=== PATIENT | male | born 1960 | race Hispanic/Latino ===

== ENCOUNTER 2017-11-25 03:58 | Inpatient (IN) | payer MEDICARE, OTHER ==
[2017-11-25 04:11] VITALS: BMI 24.3
[2017-11-25] MEDS ORDERED: Sodium Chloride 0.9% 1,000 ML IV STA (04:21)
[2017-11-25] MEDS ORDERED: Morphine 4 mg/ml ISec IVP STA (04:21)
--- NOTE | 2017-11-25 04:26 | ED PDOC ---
Arrival/HPI - General Chief Complaint: Abdominal Pain Time Seen by Provider: 11/25/17 04:10 Historian: Patient - History of Present Illness Narrative History of Present Illness (Text): 11/25/17 04:22 57 year old male, whose past medical history includes ulcerations in the stomach , multiple abdominal surgeries, and 3 blood clots in the legs, who presents to the emergency department complaining of abdominal pain since midnight. Patient notes associated nausea. Patient notes a couple months ago he was hospitalized to the ICU for internal bleeding due to stomach ulcerations. Patient denies any fever, chills, chest pain, shortness of breath, vomiting, diarrhea, back pain, neck pain, headache, dizziness, or any other complaints. 11/25/17 04:33 Time/Duration: 4-6 hours Symptom Onset: Sudden Symptom Course: Unchanged Activities at Onset: Light Context: Home Past Medical History - Provider Review Nursing Documentation Reviewed: Yes - Cardiac Hx Cardiac Disorders: No - Pulmonary Hx Respiratory Disorders: No - Neurological Hx Neurological Disorder: No - HEENT Hx HEENT Disorder: No - Renal Hx Renal Disorder: No - Endocrine/Metabolic Hx Endocrine Disorders: No - Hematological/Oncological Hx Blood Transfusions: Yes (2018) - Integumentary Hx Dermatological Disorder: No - Musculoskeletal/Rheumatological Hx Musculoskeletal Disorders: Yes - Gastrointestinal Hx Bowel Surgery: Yes (multiple surgeries) Other/Comment: 2000 traumatic impalement - Genitourinary/Gynecological Hx Genitourinary Disorders: No - Psychiatric Hx Psychophysiologic Disorder: No Hx Substance Use: No - Surgical History Hx Amputation: Yes (left big toe) Hx Musculoskeletal Surgery: Yes (left wrist/left leg) Other/Comment: 2000 traumatic impalement - Anesthesia Hx Anesthesia: Yes Hx Anesthesia Reactions: No Hx Malignant Hyperthermia: No Family/Social History - Physician Review Nursing Documentation Reviewed: Yes Family/Social History: Unknown Family HX Smoking Status: Never Smoked Hx Alcohol Use: No Hx Substance Use: No Allergies/Home Meds Allergies/Adverse Reactions: Allergies ciprofloxacin [From Cipro] Allergy (Verified 11/25/17 04:11) RASH hydralazine Allergy (Verified 11/25/17 04:13) RASH lisinopril Allergy (Verified 11/25/17 04:11) RASH Home Medications: Home Meds Medication Instructions Recorded Confirmed No Known Home Med 11/25/17 11/25/17 Review of Systems - Physician Review All systems were reviewed & negative as marked: Yes - Review of Systems Constitutional: Normal Eyes: Normal ENT: Normal Respiratory: Normal. absent: SOB, Cough Cardiovascular: Normal. absent: Chest Pain Gastrointestinal: Abdominal Pain, Nausea. absent: Diarrhea, Vomiting Genitourinary Male: Normal. absent: Dysuria, Frequency, Hematuria, Urinary Output Changes Musculoskeletal: Normal. absent: Back Pain, Neck Pain Skin: Normal. absent: Rash Neurological: Normal. absent: Headache, Dizziness Endocrine: Normal Hemo/Lymphatic: Normal Psychiatric: Normal Physical Exam Vital Signs Reviewed: Yes Vital Signs Temp Pulse Resp BP Pulse Ox 11/25/17 05:58 62 18 116/80 96 11/25/17 04:21 98.2 F 65 16 144/75 97 Temperature: Afebrile Blood Pressure: Normal Pulse: Regular Respiratory Rate: Normal Appearance: Positive for: Well-Appearing, Non-Toxic, Comfortable Pain Distress: None Mental Status: Positive for: Alert and Oriented X 3 - Systems Exam Head: Present: Atraumatic, Normocephalic Pupils: Present: PERRL Extroacular Muscles: Present: EOMI Conjunctiva: Present: Other (pink) Mouth: Present: Moist Mucous Membranes Neck: Present: Normal Range of Motion Respiratory/Chest: Present: Clear to Auscultation, Good Air Exchange. No: Respiratory Distress, Accessory Muscle Use Cardiovascular: Present: Regular Rate and Rhythm, Normal S1, S2. No: Murmurs Abdomen: Present: Tenderness (epigastric tenderness), Guarding, Scars (surgical scars). 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 No: Occult Blood, Rectal Tenderness , Gross Blood, Melena Back: Present: Normal Inspection. No: CVA Tenderness, Midline Tenderness, Paraspinal Tenderness Upper Extremity: Present: Normal Inspection. No: Cyanosis, Edema Lower Extremity: Present: Normal Inspection. No: Edema Neurological: Present: GCS=15, CN II-XII Intact, Speech Normal Skin: Present: Warm, Dry, Normal Color. No: Rashes Psychiatric: Present: Alert, Oriented x 3, Normal Insight, Normal Concentration Medical Decision Making ED Course and Treatment: 11/25/17 04:29 Impression: 57 year old male presents to the emergency department with abdominal pain since midnight. Differential Diagnosis included but are not limited to: Abdominal Pain vs. Rule out obstruction Plan: -- VBG -- Labs -- Lipase -- Magnesium -- Morphine -- Zofran -- Protonix -- Sodium Chloride -- Urinalysis -- Reassess and disposition Progress Notes: 11/25/17 04:32 EKG reviewed, shows NSR at 71 bpm. LAFB 11/25/17 05:46 Upon reevaluation, patient not feeling well. Actively nauseas, with increasing abdominal pain. Abdomen more distended, tenderness, guarding, no rebound. Patient non-tolerable to PO contrast, CT cancelled and CT w/o PO contrast ordered. 11/25/17 06:58 Accession No. : [id number] CT Abdomen and Pelvis With Intravenous Contrast IMPRESSION: 1.There are nonspecific fluid filled small bowel loops with bowel wall thickening. These findings can represent ileus versus enteritis versus slow transit versus peristalsis. The bowel is adherent to the anterior abdominal wall in the left hemiabdomen seen on image 76 series 3 likely due to adhesions. Close clinical surveillance is recommended if patient demonstrate acute obstructive bowel obstruction symptoms to monitor for partial versus early small bowel obstruction. At this time no definite transition is identified. Case discussed with financial institution vice president, Dr. Stovall. Paged Dr. Guevara. Case signed out to Dr. Calderón to f/u Surgery, reevaluate and disposition. - Lab Interpretations Lab Results: 11/25/17 04:37 11/25/17 04:37 Lab Results 11/25/17 04:37: Sodium 145, Chloride 111 H, Potassium 4.0, Carbon Dioxide 22, Anion Gap 17, BUN 23 H, Creatinine 1.0, Est GFR ( Amer) > 60, Est GFR ( Non-Af Amer) > 60, Random Glucose 82, Calcium 8.6, Magnesium 1.5 L, Total Bilirubin 0.3, AST 32, ALT 29, Alkaline Phosphatase 78, Total Protein 7.0, Albumin 4.0, Globulin 3.0, Albumin/Globulin Ratio 1.3, Lipase 202 11/25/17 04:37: pO2 66 H, VBG pH 7.33, VBG pCO2 42.0, VBG HCO3 22.1, VBG Total CO2 23.4, VBG O2 Sat (Calc) 91.0 H, VBG Base Excess -3.7 L, VBG Potassium 3.7, Sodium 139.0, Chloride 111.0 H, Glucose 89, Lactate 1.2, FiO2 21.0, Venous Blood Potassium 3.7 11/25/17 04:37: PT 10.4, INR 0.91 L, APTT 28.9 11/25/17 04:37: WBC 7.4, RBC 4.91, Hgb 12.4 L, Hct 38.2 L, MCV 77.8 L, MCH 25.3 , MCHC 32.5, RDW 18.1 H, Plt Count 149, MPV 11.3 H, Gran % 46.8 L, Lymph % (Auto ) 46.1 H, [place] % (Auto) 5.7, Eos % (Auto) 1.1 L, Baso % (Auto) 0.3, Gran # 3.48 , Lymph # (Auto) 3.4, [place] # (Auto) 0.4, Eos # (Auto) 0.1, Baso # (Auto) 0.02 - RAD Interpretation Radiology Orders: 11/25/17 05:46 ABD & PELVIS IV CONTRAST ONLY [CT] Stat - Medication Orders Current Medication Orders: Discontinued Medications Sodium Chloride (Sodium Chloride 0.9%) 1,000 mls @ 1,000 mls/hr IV .Q1H STA Stop: 11/25/17 05:20 Last Admin: 11/25/17 04:51 Dose: 1,000 mls/hr eMAR Start Stop Document 11/25/17 04:51 IT (Rec: 11/25/17 04:51 IT [id number]) Intravenous Solution Start Date 11/25/17 Start Time 04:51 End Date 11/25/17 End time 05:51 Total Infusion Time 60 Magnesium Oxide (Mag-Ox) 400 mg PO STAT STA Stop: 11/25/17 05:14 Last Admin: 11/25/17 05:42 Dose: 400 mg Morphine Sulfate (Morphine) 4 mg IVP STAT STA Stop: 11/25/17 04:22 Last Admin: 11/25/17 04:51 Dose: 4 mg MAR Pain Assessment Document 11/25/17 04:51 IT (Rec: 11/25/17 04:51 IT [id number]) Pain Reassessment Is this a pain reassessment? No Sleep Is patient sleeping during reassessment? No Presence of Pain Presence of Pain Yes Pain Scale Used Pain Scale Used Numeric Location Left, Right or Bilateral Right Pain Location Body Site Abdomen Description Description Constant IVP Administration Document 11/25/17 04:51 IT (Rec: 11/25/17 04:51 IT [id number]) Charges for Administration # of IVP Administrations 1 Morphine Sulfate (Morphine) 6 mg IVP STAT STA Stop: 11/25/17 05:46 Last Admin: 11/25/17 05:56 Dose: 6 mg MAR Pain Assessment Document 11/25/17 05:56 IT (Rec: 11/25/17 05:57 IT [id number]) Pain Reassessment Is this a pain reassessment? No Sleep Is patient sleeping during reassessment? No Presence of Pain Presence of Pain Yes Pain Scale Used Pain Scale Used Numeric Location Left, Right or Bilateral Bilateral Pain Location Body Site Abdomen IVP Administration Document 11/25/17 05:56 IT (Rec: 11/25/17 05:57 IT [id number]) Charges for Administration # of IVP Administrations 1 Ondansetron HCl (Zofran Inj) 4 mg IVP STAT STA Stop: 11/25/17 04:22 Last Admin: 11/25/17 04:51 Dose: 4 mg IVP Administration Document 11/25/17 04:51 IT (Rec: 11/25/17 04:51 IT [id number]) Charges for Administration # of IVP Administrations 1 Pantoprazole Sodium (Protonix Inj) 40 mg IVP STAT STA Stop: 11/25/17 04:22 Last Admin: 11/25/17 04:51 Dose: 40 mg IVP Administration Document 11/25/17 04:51 IT (Rec: 11/25/17 04:51 IT [id number]) Charges for Administration # of IVP Administrations 1 - Scribe Statement The provider has reviewed the documentation as recorded by the Scribe Tamar Ramon All medical record entries made by the Scribe were at my direction and personally dictated by me. I have reviewed the chart and agree that the record accurately reflects my personal performance of the history, physical exam, medical decision making, and the department course for this patient. I have also personally directed, reviewed, and agree with the discharge instructions and disposition. Disposition/Present on Arrival - Present on Arrival Any Indicators Present on Arrival: No History of DVT/PE: No History of Uncontrolled Diabetes: No Urinary Catheter: No History of Decub. Ulcer: No History Surgical Site Infection Following: None - Disposition Have Diagnosis and Disposition been Completed?: Yes Diagnosis: Abdominal pain Disposition Time: 07:00 Condition: GUARDED Referrals: PCP,NO [Primary Care Provider] - Follow up with primary Forms: Sandag (Romanian)
[2017-11-25 05:00] LABS: VENOUS BLOOD GAS BASE EXCESS -3.7 mmol/L (0.0-2.0); VENOUS BLOOD GAS PO2 66 mm/Hg (30-55); VENOUS BLOOD PH 7.33 (7.32-7.43)
[2017-11-25 05:10] LABS: ALB/GLOB RATIO 1.3 (1.1-1.8); ALT/SGPT 29 U/L (7-56); AST/SGOT 32 U/L (17-59); BLOOD UREA NITROGEN 23 mg/dL (7-21); CALCIUM 8.6 mg/dL (8.4-10.5); GFR NON-AFRICAN AMERICAN > 60; LIPASE 202 U/L (23-300)
[2017-11-25] MEDS ORDERED: Magnesium Oxide 400 mg Tab UD PO STA (05:13)
[2017-11-25 05:29] LABS: BASO # 0.02 K/mm3 (0.0-2.0); BASO % 0.3 % (0.0-3.0); EOS # 0.1 (0.0-0.7); EOS % 1.1 % (1.5-5.0); GRAN # 3.48 (1.4-6.5); GRAN % 46.8 % (50.0-68.0); HEMOGLOBIN 12.4 g/dL (14.0-18.0); LYMPH # 3.4 (1.2-3.4); LYMPH % 46.1 % (22.0-35.0); MEAN CELL VOLUME 77.8 fl (80.0-105.0); MEAN CORPUSCULAR HEMOGLOBIN 25.3 pg (25.0-35.0); MEAN CORPUSCULAR HGB CONC 32.5 g/dl (31.0-37.0); MEAN PLATELET VOLUME 11.3 fl (7.0-11.0); MONO # 0.4 (0.1-0.6); MONO % 5.7 % (1.0-6.0); RBC 4.91 10^6/uL (3.5-6.1); RED CELL DISTRIBUTION WIDTH 18.1 % (11.5-14.5); WHITE BLOOD COUNT 7.4 10^3/ul (4.5-11.0)
[2017-11-25] MEDS ORDERED: Iohexol 240 (50 ml) ONE (05:33)
[2017-11-25 05:44] LABS: INR 0.91 (0.93-1.08); PARTIAL THROMBOPLASTIN TIME 28.9 Seconds (25.1-36.5); PROTHROMBIN TIME 10.4 SECONDS (9.4-12.5)
[2017-11-25] MEDS ORDERED: Iohexol 350 MG/100 ML VIAL ONE (05:53)
--- NOTE | 2017-11-25 06:50 | CT ---
EXAM: CT Abdomen and Pelvis With Intravenous Contrast CLINICAL HISTORY: 57 years old, male; Pain; Abdominal pain; Prior surgery; Surgery date: 6+ months; Surgery type: Abdominal surgery to remove an object the went through him; Additional info: Abd pain R/O obstruction TECHNIQUE: Axial computed tomography images of the abdomen and pelvis with intravenous contrast. All CT scans at this facility use one or more dose reduction techniques, viz.: automated exposure control; ma/kV adjustment per patient size (including targeted exams where dose is matched to indication; i.e. head); or iterative reconstruction technique. 589 images are submitted. Axial images are submitted in soft tissue and lung windows. Oral contrast was administered. Coronal and sagittal reformatted images were created and reviewed. Axial reformatted images were created and reviewed. CONTRAST: 100 mL of omnipaque 350 administered intravenously. COMPARISON: No relevant prior studies available. FINDINGS: Lung bases: There is bibasilar atelectasis. ABDOMEN: Liver: Fatty liver. Gallbladder and bile ducts: Mild intrahepatic biliary ductal dilatation can be due to post cholecystectomy. Correlation with LFTs may be helpful if an acute obstructive process is suspected. Pancreas: Unremarkable. No mass. No ductal dilation. Spleen: Unremarkable. No splenomegaly. Adrenals: Unremarkable. No mass. Kidneys and ureters: Unremarkable. No solid mass. No hydronephrosis. Stomach and bowel: Small hiatal hernia with delayed emptying versus gastroesophageal reflux. Right ileocolic anastomosis. Large amount of stool in the colon. Correlation with patient's clinical history of constipation is recommended. There are nonspecific fluid filled small bowel loops with bowel wall thickening Possible evidence of Agusto fundoplication. Correlation with patient's surgical history is recommended. PELVIS: Appendix: Appendectomy. Bladder: The bladder is distended. Reproductive: Mild prominence of the prostate gland. ABDOMEN and PELVIS: Intraperitoneal space: Unremarkable. No free air. No significant fluid collection. Bones/joints: No acute fracture. No dislocation. Soft tissues: Bilateral inguinal herniation of fat. Anterior abdominal wall postoperative changes suggestive of prior surgery and possible hernia repair. These findings can represent ileus versus enteritis versus slow transit versus peristalsis. Vasculature: Unremarkable. No abdominal aortic aneurysm. Lymph nodes: Unremarkable. No enlarged lymph nodes. Tubes, lines and devices: There are radiopaque markers of the epidural catheter projecting in the thoracic spine. Other findings: History no hypodensities IMPRESSION: 1.There are nonspecific fluid filled small bowel loops with bowel wall thickening. These findings can represent ileus versus enteritis versus slow transit versus peristalsis. The bowel is adherent to the anterior abdominal wall in the left hemiabdomen seen on image 76 series 3 likely due to adhesions. Close clinical surveillance is recommended if patient demonstrate acute obstructive bowel obstruction symptoms to monitor for partial versus early small bowel obstruction. At this time no definite transition is identified.
--- NOTE | 2017-11-25 06:59 | CP.PCM.CON ---
<Wilman Murillo - Last Filed: 11/25/17 09:30> History of Present Illness - History of Present Illness History of Present Illness: General Surgery Consult Note for Dr. Guevara Reason for consult: Partial SBO vs ileus 57 M with PMH that includes approximately 15 abdominal surgeries presents to [facility] for complaint of abdominal pain. Patient was seen and evaluated in the ED. Patient states that pain began around midnight. It woke him up suddnely. Patient recently moved back to [place] from [place]. 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 Patient experienced a trauma where he fell a large distance. He had two trauma ex laps initially then over subsequent years had numeorus surgeries for SBOs requiring resections. Patient reports that he does not have much small bowel remaining. He also states that he was in [facility] [place] for a perforated gastric ulcer where he had surgery then subsequently develop surgical site infection and DVTs. Patient rates pain as severe. He reports that it is similar to previous episodes of SBOs. He describes pain as constant and cramping located diffusely through abdomen. Denies aggrevating or alleviating factors. Patient states that he has also had SBOs in the past that resolved with conservative management. Denies recent illness or sick contacts but states he usually only has diarrhea during BMs due to length of small bowel. Patient reports BM and flatus yesterday. Admits to an episode of nausea/vomiting at home. Denies fevers/chils, chest pain , SOB, palpitations, constipation, incontinence, or urinary symptoms. PMH: Trauma s/p fall, DVTs, HTN Meds: Denies Allergy: Ciprofloxacin, Hydralazine, Lisinopril PSH: 37 total surgeries, ~15 abdominal includes ex laps, small bowel resections , lysis of adhesions, gastric resection, melanie fundoplication FH: non-contributory Social: denies tobacco/illicit drug use, drinks EtOH occasionally, lives with , on medical disability Review of Systems - Review of Systems All systems: reviewed and no additional remarkable complaints except (as per HPI ) Past Patient History - Past Social History Smoking Status: Never Smoked - CARDIAC Hx Cardiac Disorders: No - PULMONARY Hx Respiratory Disorders: No - NEUROLOGICAL Hx Neurological Disorder: No - HEENT Hx HEENT Problems: No - RENAL Hx Chronic Kidney Disease: No - ENDOCRINE/METABOLIC Hx Endocrine Disorders: No - HEMATOLOGICAL/ONCOLOGICAL Hx Blood Transfusions: Yes (2017) - INTEGUMENTARY Hx Dermatological Problems: No - MUSCULOSKELETAL/RHEUMATOLOGICAL Hx Musculoskeletal Disorders: Yes - GASTROINTESTINAL Hx Bowel Surgery: Yes (multiple surgeries) Other/Comment: 2000 traumatic impalement - GENITOURINARY/GYNECOLOGICAL Hx Genitourinary Disorders: No - PSYCHIATRIC Hx Psychophysiologic Disorder: No Hx Substance Use: No - SURGICAL HISTORY Hx Amputation: Yes (left big toe) Hx Musculoskeletal Surgery: Yes (left wrist/left leg) Other/Comment: 2000 traumatic impalement - ANESTHESIA Hx Anesthesia: Yes Hx Anesthesia Reactions: No Hx Malignant Hyperthermia: No Meds Allergies/Adverse Reactions: Allergies Allergy/AdvReac Type Severity Reaction Status Date / Time ciprofloxacin [From Cipro] Allergy RASH Verified 11/25/17 04:11 hydralazine Allergy RASH Verified 11/25/17 04:13 lisinopril Allergy RASH Verified 11/25/17 04:11 Physical Exam - Constitutional Appears: No Acute Distress - Head Exam Head Exam: ATRAUMATIC, NORMOCEPHALIC - Eye Exam Eye Exam: EOMI, Normal appearance Pupil Exam: PERRL - ENT Exam ENT Exam: Mucous Membranes Moist Additional comments: NGT in place on low continuous suction - Respiratory Exam Respiratory Exam: NORMAL BREATHING PATTERN - Cardiovascular Exam Cardiovascular Exam: REGULAR RHYTHM - GI/Abdominal Exam GI & Abdominal Exam: Distended, Hypoactive Bowel Sounds, Soft, Tenderness ( diffuse). absent: Firm, Guarding, Rebound, Rigid Additional comments: Midline scar from abdominal surgeries, slightly deformed due to thinning of muscle, no evidence of hernia - Extremities Exam Extremities exam: Positive for: normal capillary refill, pedal pulses present. Negative for: calf tenderness Additional comments: 1st metatarsal amputation on LLE various scars on bilateral lower extremities - Back Exam Back exam: absent: CVA tenderness (L), CVA tenderness (R) - Neurological Exam Neurological exam: Alert, CN II-XII Intact, Oriented x3 - Psychiatric Exam Psychiatric exam: Normal Affect, Normal Mood - Skin Skin Exam: Dry, Intact, Normal Color, Warm Results - Vital Signs Recent Vital Signs: Last Vital Signs Temp 98.2 F 11/25/17 04:21 Pulse 62 11/25/17 05:58 Resp 18 11/25/17 05:58 BP 116/80 11/25/17 05:58 Pulse Ox 96 11/25/17 05:58 - Labs Result Diagrams: 11/25/17 04:37 11/25/17 04:37 Labs: Laboratory Results - last 24 hr 11/25/17 11/25/17 11/25/17 04:37 04:37 04:37 WBC 7.4 RBC 4.91 Hgb 12.4 L Hct 38.2 L MCV 77.8 L MCH 25.3 MCHC 32.5 RDW 18.1 H Plt Count 149 MPV 11.3 H Gran % 46.8 L Lymph % (Auto) 46.1 H [place] % (Auto) 5.7 Eos % (Auto) 1.1 L Baso % (Auto) 0.3 Gran # 3.48 Lymph # (Auto) 3.4 [place]idan # (Auto) 0.4 Eos # (Auto) 0.1 Baso # (Auto) 0.02 PT 10.4 INR 0.91 L APTT 28.9 pO2 66 H VBG pH 7.33 VBG pCO2 42.0 VBG HCO3 22.1 VBG Total CO2 23.4 VBG O2 Sat (Calc) 91.0 H VBG Base Excess -3.7 L VBG Potassium 3.7 Sodium 139.0 Chloride 111.0 H Glucose 89 Lactate 1.2 FiO2 21.0 Potassium Carbon Dioxide Anion Gap BUN Creatinine Est GFR ( Amer) Est GFR (Non-Af Amer) Random Glucose Calcium Magnesium Total Bilirubin AST ALT Alkaline Phosphatase Total Protein Albumin Globulin Albumin/Globulin Ratio Lipase Venous Blood Potassium 3.7 11/25/17 04:37 WBC RBC Hgb Hct MCV MCH MCHC RDW Plt Count MPV Gran % Lymph % (Auto) [place] % (Auto) Eos % (Auto) Baso % (Auto) Gran # Lymph # (Auto) [place] # (Auto) Eos # (Auto) Baso # (Auto) PT INR APTT pO2 VBG pH VBG pCO2 VBG HCO3 VBG Total CO2 VBG O2 Sat (Calc) VBG Base Excess VBG Potassium Sodium 145 Chloride 111 H Glucose Lactate FiO2 Potassium 4.0 Carbon Dioxide 22 Anion Gap 17 BUN 23 H Creatinine 1.0 Est GFR ( Amer) > 60 Est GFR (Non-Af Amer) > 60 Random Glucose 82 Calcium 8.6 Magnesium 1.5 L Total Bilirubin 0.3 AST 32 ALT 29 Alkaline Phosphatase 78 Total Protein 7.0 Albumin 4.0 Globulin 3.0 Albumin/Globulin Ratio 1.3 Lipase 202 Venous Blood Potassium Assessment & Plan - Assessment and Plan (Free Text) Assessment: 57 M with extensive PMH including numerous abdominal surgeries presents for abdominal pain likely secondary to pSBO Plan: -NPO -NGT on low continuous wall suction -Monitor output -Strict I's & O's -IV fluids -Analgesics/Anti-emetics PRN -Serial abdominal exams -Monitor Bowel function -GI/DVT ppx -Discussed with Dr. 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
--- NOTE | 2017-11-25 07:15 | ED PDOC ---
Physical Exam Vital Signs Reviewed: Yes Vital Signs Temp Pulse Resp BP Pulse Ox 11/25/17 05:58 62 18 116/80 96 11/25/17 04:21 98.2 F 65 16 144/75 97 Temperature: Afebrile Blood Pressure: Normal Pulse: Regular Respiratory Rate: Normal Appearance: Positive for: Well-Appearing, Non-Toxic, Comfortable Pain Distress: None Mental Status: Positive for: Alert and Oriented X 3 Medical Decision Making ED Course and Treatment: 11/25/17 07:13 Patient signed out to me by Dr. Ansari. Patient, whose history includes multiple abdominal surgeries, presents with abdominal pain and vomiting. On CT scan, patient has multiple issues, including partial small bowel obstruction. Patient will likely be admitted. - Lab Interpretations Lab Results: 11/25/17 04:37 11/25/17 04:37 Lab Results 11/25/17 04:37: Sodium 145, Chloride 111 H, Potassium 4.0, Carbon Dioxide 22, Anion Gap 17, BUN 23 H, Creatinine 1.0, Est GFR ( Amer) > 60, Est GFR ( Non-Af Amer) > 60, Random Glucose 82, Calcium 8.6, Magnesium 1.5 L, Total Bilirubin 0.3, AST 32, ALT 29, Alkaline Phosphatase 78, Total Protein 7.0, Albumin 4.0, Globulin 3.0, Albumin/Globulin Ratio 1.3, Lipase 202 11/25/17 04:37: pO2 66 H, VBG pH 7.33, VBG pCO2 42.0, VBG HCO3 22.1, VBG Total CO2 23.4, VBG O2 Sat (Calc) 91.0 H, VBG Base Excess -3.7 L, VBG Potassium 3.7, Sodium 139.0, Chloride 111.0 H, Glucose 89, Lactate 1.2, FiO2 21.0, Venous Blood Potassium 3.7 11/25/17 04:37: PT 10.4, INR 0.91 L, APTT 28.9 11/25/17 04:37: WBC 7.4, RBC 4.91, Hgb 12.4 L, Hct 38.2 L, MCV 77.8 L, MCH 25.3 , MCHC 32.5, RDW 18.1 H, Plt Count 149, MPV 11.3 H, Gran % 46.8 L, Lymph % (Auto ) 46.1 H, [place] % (Auto) 5.7, Eos % (Auto) 1.1 L, Baso % (Auto) 0.3, Gran # 3.48 , Lymph # (Auto) 3.4, [place] # (Auto) 0.4, Eos # (Auto) 0.1, Baso # (Auto) 0.02 - RAD Interpretation Radiology Orders: 11/25/17 05:46 ABD & PELVIS IV CONTRAST ONLY [CT] Stat 11/25/17 07:45 X-RAY [CHEST PORTABLE] [RAD] Stat - Medication Orders Current Medication Orders: Lactated Ringer's (Lactated Ringer's) 1,000 mls @ 110 mls/hr IV .Q9H6M [facility] Morphine Sulfate (Morphine) 2 mg IVP Q4H PRN PRN Reason: Pain, severe (8-10) Ondansetron HCl (Zofran Inj) 4 mg IVP Q6H PRN PRN Reason: Nausea/Vomiting Pantoprazole Sodium (Protonix Inj) 40 mg IVP DAILY [facility] Discontinued Medications Sodium Chloride (Sodium Chloride 0.9%) 1,000 mls @ 1,000 mls/hr IV .Q1H STA Stop: 11/25/17 05:20 Last Admin: 11/25/17 04:51 Dose: 1,000 mls/hr eMAR Start Stop Document 11/25/17 04:51 IT (Rec: 11/25/17 04:51 IT [id number]) Intravenous Solution Start Date 11/25/17 Start Time 04:51 End Date 11/25/17 End time 05:51 Total Infusion Time 60 Magnesium Oxide (Mag-Ox) 400 mg PO STAT STA Stop: 11/25/17 05:14 Last Admin: 11/25/17 05:42 Dose: 400 mg Morphine Sulfate (Morphine) 4 mg IVP STAT STA Stop: 11/25/17 04:22 Last Admin: 11/25/17 04:51 Dose: 4 mg MAR Pain Assessment Document 11/25/17 04:51 IT (Rec: 11/25/17 04:51 IT [id number]) Pain Reassessment Is this a pain reassessment? No Sleep Is patient sleeping during reassessment? No Presence of Pain Presence of Pain Yes Pain Scale Used Pain Scale Used Numeric Location Left, Right or Bilateral Right Pain Location Body Site Abdomen Description Description Constant IVP Administration Document 11/25/17 04:51 IT (Rec: 11/25/17 04:51 IT [id number]) Charges for Administration # of IVP Administrations 1 Morphine Sulfate (Morphine) 6 mg IVP STAT STA Stop: 11/25/17 05:46 Last Admin: 11/25/17 05:56 Dose: 6 mg MAR Pain Assessment Document 11/25/17 05:56 IT (Rec: 11/25/17 05:57 IT [id number]) Pain Reassessment Is this a pain reassessment? No Sleep Is patient sleeping during reassessment? No Presence of Pain Presence of Pain Yes Pain Scale Used Pain Scale Used Numeric Location Left, Right or Bilateral Bilateral Pain Location Body Site Abdomen IVP Administration Document 11/25/17 05:56 IT (Rec: 11/25/17 05:57 IT [id number]) Charges for Administration # of IVP Administrations 1 Ondansetron HCl (Zofran Inj) 4 mg IVP STAT STA Stop: 11/25/17 04:22 Last Admin: 11/25/17 04:51 Dose: 4 mg IVP Administration Document 11/25/17 04:51 IT (Rec: 11/25/17 04:51 IT [id number]) Charges for Administration # of IVP Administrations 1 Pantoprazole Sodium (Protonix Inj) 40 mg IVP STAT STA Stop: 11/25/17 04:22 Last Admin: 11/25/17 04:51 Dose: 40 mg IVP Administration Document 11/25/17 04:51 IT (Rec: 11/25/17 04:51 IT [id number]) Charges for Administration # of IVP Administrations 1 - Scribe Statement The provider has reviewed the documentation as recorded by the Niranjanibbarbara Andre Provider Scribe Attestation: All medical record entries made by the Scribe were at my direction and personally dictated by me. I have reviewed the chart and agree that the record accurately reflects my personal performance of the history, physical exam, medical decision making, and the department course for this patient. I have also personally directed, reviewed, and agree with the discharge instructions and disposition. Disposition/Present on Arrival - Present on Arrival Any Indicators Present on Arrival: No History of DVT/PE: No History of Uncontrolled Diabetes: No Urinary Catheter: No History of Decub. Ulcer: No History Surgical Site Infection Following: None - Disposition Have Diagnosis and Disposition been Completed?: Yes Diagnosis: Abdominal pain, Partial small bowel obstruction Disposition: HOSPITALIZED Disposition Time: 08:23 Patient Plan: Admission Patient Problems: Current Active Problems Problem Status Onset Abdominal pain Acute Condition: GOOD Referrals: PCP,NO [Primary Care Provider] - Follow up with primary Forms: [employer] (Gabonese)
[2017-11-25] MEDS ORDERED: TETRACAINE/BENZOCAINE/BUTAMBEN 20 GM SPRAY TP ONE (07:23)
[2017-11-25] MEDS ORDERED: Morphine 2 mg/ml ISec IVP PRN (07:45)
[2017-11-25] MEDS: Morphine 4 mg/ml ISec IVP PRN ×4 (08:50→20:56)
--- NOTE | 2017-11-25 09:27 | RAD ---
HISTORY: Verify placement of NGT COMPARISON: No prior. FINDINGS: In situ NGT, the tip of which overlies right upper abdomen. Also again noted infarct in situ pain stimulator electrodes overlying the thoracic region. LUNGS: Minor bibasilar atelectasis. PLEURA: No significant pleural effusion identified, no pneumothorax apparent. CARDIOVASCULAR: Heart size mildly enlarged unchanged OSSEOUS STRUCTURES: No significant abnormalities. VISUALIZED UPPER ABDOMEN: Normal. OTHER FINDINGS: None. IMPRESSION: No active disease.
--- NOTE | 2017-11-25 09:58 | CARD ---
APPROVED REPORT EKG Measurement Heart [id number] MI [id number] <Conclusion> Normal sinus rhythm Left anterior fascicular block
[2017-11-25] MEDS: Lactated Ringer's 1,000 ML IV SCH ×2 (10:48→16:38)
[2017-11-25] MEDS: Enoxaparin 40 mg Syringe SC SCH (10:49)
[2017-11-25] MEDS ORDERED: DiphenhydrAMINE 50 mg/ml Inj IVP PRN (12:33)
[2017-11-25] MEDS: DiphenhydrAMINE 50 mg/ml Inj IVP PRN ×3 (12:43→20:57)
[2017-11-26] MEDS: Morphine 4 mg/ml ISec IVP PRN ×3 (01:02→09:55)
[2017-11-26] MEDS: DiphenhydrAMINE 50 mg/ml Inj IVP PRN ×6 (01:02→21:49)
--- NOTE | 2017-11-26 01:41 | CON ---
DATE: HISTORY OF PRESENT ILLNESS: This is a 57-year-old patient with past medical history of multiple abdominal surgeries, history of peptic ulcer disease, admitted with acute onset of abdominal pain, started around midnight, cramping abdominal pain, presented to the emergency room. Patient had several episodes of small bowel obstruction, surgeries done in the past, many of them managed conservatively. This admission, patient was appeared to have a partial small bowel obstruction, admitted for further evaluation. Patient has a history of fall at work, sustained multiple traumas, multiple surgeries done and several small bowel resection surgeries done for an obstruction. Patient was in [place], recently moved back to [place]. History of loose bowel movements, which he attributes to this smaller multiple surgeries, which resulted in a smaller length of the small bowel. PAST MEDICAL HISTORY: Other past medical history includes history of DVT, hypertension, history of peptic ulcer disease. ALLERGIES: CIPRO, HYDRALAZINE, LISINOPRIL. PAST SURGICAL HISTORY: Significant for gastric resections, nearly 27 total surgeries including nearly 15 abdominal surgeries. FAMILY HISTORY: Noncontributory. SOCIAL HISTORY: Denies smoking, alcohol socially. REVIEW OF SYSTEMS: Positive as above. Other systems reviewed. PHYSICAL EXAMINATION: GENERAL: Patient is lying on the bed, not in acute distress. VITAL SIGNS: Temperature 97.6, blood pressure 122/71, pulse 85, respirations 18. HEENT: Anicteric. Pupils equal and reactive to light. NECK: Supple. HEART: S1 and S2 heard. LUNGS: Bilateral air entry present. ABDOMEN: Multiple surgical scar seen, softly distended. Bowel sounds present, active. EXTREMITIES: No edema, no cyanosis. There are multiple surgical scars noticed. Patient had a NG tube. LABORATORY DATA: Hemoglobin 12.4, hematocrit 38.2, WBC 7.4, platelets 149. Chemistry showed magnesium 1.5, BUN 23, creatinine 1. DIAGNOSTIC DATA: Patient had a CT scan of the abdomen and pelvis done, which was reviewed. Multiple loops of the small bowel distension noticed. An adherence of the small bowel to the abdominal wall noticed on the left abdominal area. IMPRESSION: 1. Partial small bowel obstruction. Patient has been on multiple surgeries in the past. Has nasogastric tube. Patient feels better with nasogastric tube decompression. Patient is also being evaluated by the Surgery. We will continue conservative management and with a close surgical followup. 2. Supplement magnesium. Continue nasogastric tube suction, intravenous hydration. Follow up with the electrolytes. Also, benefit from proton pump inhibitor. Thank you very much for allowing us to participate in the care of the patient. We will continue to closely follow up with care and suggest further management based on the clinical course. Maribel Eason MD
--- NOTE | 2017-11-26 07:17 | HP ---
CHIEF COMPLAINT: Abdominal pain, nausea and vomiting. HISTORY OF PRESENT ILLNESS: Mr. Tommy Murray is a [id number] male with past medical history of ulceration in the stomach, multiple abdominal surgeries and 3 blood clots in the legs, came to the emergency department complaining of abdominal pain and nausea and vomiting. The patient noticed a couple months ago, he was hospitalized in the ICU for internal bleeding due to stomach ulceration in [place]. The patient denies any fevers, chills, shortness of breath, diarrhea or back pain. No hematuria. No hematochezia. Per patient, no dizziness, no headache. We admitted the patient, called consult with GI Dr. Eason and Surgery Dr. Guevara. NG tube is put and Surgery offered Enema and the patient is refusing. PAST MEDICAL HISTORY: Anemia, gastric ulcer, history of blood transfusion, multiple abdominal surgeries, left big toe amputation, left wrist and left leg has surgical rods. HABITS: Never smoked. No drugs. No ethanol. FAMILY HISTORY: Unknown. ALLERGIES: PATIENT IS ALLERGIC WITH CIPROFLOXACIN, HYDRALAZINE, LISINOPRIL. HOME MEDICATIONS: He does not remember. REVIEW OF SYSTEMS: Patient was seen and examined at the bedside in his room, having NG tube. No shortness of breath or coughing. No chest pain. Having abdominal pain, but no diarrhea. No dysuria, frequency or hematuria or urinary output changes. No back pain or neck pain. No rashes. No headache. No dizziness. PHYSICAL EXAMINATION: VITAL SIGNS: Temperature 98.2, pulse 65, respiratory 16, blood pressure 144/75, pulse oximetry of 97. HEENT: Head normocephalic, atraumatic. Eyes, PERRLA. Extraocular muscles intact. Conjunctivae clear. Nose patent. Mucous membranes moist. NECK: Supple, no carotid bruit. No JVD or thyromegaly. CHEST: Bilaterally symmetrical. HEART: S1 and S2 positive. LUNGS: Clear to auscultation. ABDOMEN: Soft, epigastric tenderness. Multiple scar tissues. No distension. No peritoneal signs. RECTAL : In the ER, no occult blood. No rectal tenderness. No gross blood or melena. EXTREMITIES: No edema. No cyanosis. NEUROLOGIC: Patient is awake and alert, moving all 4 extremities. No focal deficit. LABORATORY DATA: White blood cells 7.4, hemoglobin 12.4, hematocrit 38.2, platelets 149. Sodium 145, potassium 4, BUN 23, creatinine 1, glucose 82. ASSESSMENT AND PLAN: Mr. Tommy Murray is a 57-year-old male with anemia, hyperchloremia, renal insufficiency. CT scan of abdomen and pelvis done, came with abdominal pain and nauseousness, history of anemia status post blood transfusion while admitted in [place] for peptic ulcer disease, has multiple surgeries, 2001 traumatic injery , left big toe amputation. We admitted the patient. GI and surgical consult called. NG tube passed. Chest x-ray reviewed by me. Partial small bowel obstruction versus ileus. May be because of multiple abdominal surgeries is likely cause of small bowel obstruction, may be adhesions, start patient n.p.o., monitoring output, strict I's and O's, IV fluid, analgesics, antiemetics, serial abdominal exam, monitoring bowel function. Gastrointestinal and deep venous thrombosis prophylaxis. Repeat labs. Discussion done with Dr. Eason. We will follow up. Tricia Meier MD MTDD
[2017-11-26 07:34] LABS: HEMOGLOBIN 12.3 g/dL (14.0-18.0); MEAN CELL VOLUME 77.6 fl (80.0-105.0); MEAN CORPUSCULAR HGB CONC 32.2 g/dl (31.0-37.0); RBC 4.92 10^6/uL (3.5-6.1); RED CELL DISTRIBUTION WIDTH 17.8 % (11.5-14.5); WHITE BLOOD COUNT 5.6 10^3/ul (4.5-11.0)
[2017-11-26 07:46] LABS: ALB/GLOB RATIO 1.3 (1.1-1.8); ALBUMIN 3.6 g/dL (3.0-4.8); ALT/SGPT 33 U/L (7-56); AST/SGOT 25 U/L (17-59); BLOOD UREA NITROGEN 12 mg/dL (7-21); CALCIUM 8.3 mg/dL (8.4-10.5); GFR NON-AFRICAN AMERICAN > 60; HDL CHOLESTEROL 39 mg/dL (29-60)
[2017-11-26 07:50] LABS: IRON 75 ug/dL (45-180)
[2017-11-26 07:55] LABS: LDL CHOLESTEROL 74 mg/dL (0-129)
[2017-11-26 07:59] LABS: % IRON SATURATION 16 % (20-55); TOTAL IRON BINDING CAPACITY 468 ug/dL (261-462)
--- NOTE | 2017-11-26 08:35 | CP.PCM.PN ---
<Felisha Hernandez - Last Filed: 11/26/17 08:32> Subjective - Date & Time of Evaluation Date of Evaluation: 11/26/17 Time of Evaluation: 07:10 - Subjective Subjective: Patient seen and examined at bedside. Patient had anxiety overnight and nausea with production of clear white fluid by mouth per the nursing staff. Only moderate amount of output from the NGT overnight. Reports passing gas and denies current nausea Objective - Vital Signs/Intake and Output Vital Signs (last 24 hours): Temp Pulse Resp BP Pulse Ox 97.8 F 71 20 128/78 97 11/26/17 08:22 11/26/17 08:22 11/26/17 08:22 11/26/17 08:22 11/26/17 08:22 Intake and Output: 11/26/17 11/26/17 06:59 18:59 Intake Total 0 Output Total 1300 Balance -1300 - Medications Medications: Current Medications Diphenhydramine HCl (Benadryl) 25 mg IVP Q4H PRN PRN Reason: Itching / Pruritus Last Admin: 11/26/17 05:42 Dose: 25 mg Enoxaparin Sodium (Lovenox) 40 mg SC DAILY [facility] PRN Reason: Protocol Last Admin: 11/25/17 10:49 Dose: 40 mg Lactated Ringer's (Lactated Ringer's) 1,000 mls @ 110 mls/hr IV .Q9H6M [facility] Last Admin: 11/25/17 16:38 Dose: 110 mls/hr Magnesium Oxide (Mag-Ox) 400 mg PO BID [facility] Morphine Sulfate (Morphine) 2 mg IVP Q4H PRN PRN Reason: Pain, severe (8-10) Last Admin: 11/26/17 05:43 Dose: 2 mg Ondansetron HCl (Zofran Inj) 4 mg IVP Q6H PRN PRN Reason: Nausea/Vomiting Last Admin: 11/26/17 01:09 Dose: 4 mg Pantoprazole Sodium (Protonix Inj) 40 mg IVP DAILY [facility] Last Admin: 11/25/17 10:49 Dose: 40 mg - Labs Labs: 11/26/17 07:00 11/26/17 07:00 PT 10.4 SECONDS (9.4-12.5) 11/25/17 04:37 INR 0.91 (0.93-1.08) L 11/25/17 04:37 APTT 28.9 Seconds (25.1-36.5) 11/25/17 04:37 - Constitutional Appears: Well, Non-toxic, No Acute Distress - Head Exam Head Exam: ATRAUMATIC, NORMOCEPHALIC - Eye Exam Eye Exam: Normal appearance. absent: Conjunctival injection, Scleral icterus - ENT Exam ENT Exam: Mucous Membranes Moist, Normal Oropharynx Additional comments: NGT in place - Respiratory Exam Respiratory Exam: NORMAL BREATHING PATTERN. absent: Accessory Muscle Use, Respiratory Distress - Cardiovascular Exam Cardiovascular Exam: RRR - GI/Abdominal Exam GI & Abdominal Exam: Soft. absent: Distended, Tenderness, Rebound - Extremities Exam Extremities Exam: absent: Calf Tenderness, Pedal Edema, Tenderness - Neurological Exam Neurological Exam: Alert, Awake, Oriented x3 - Psychiatric Exam Psychiatric exam: Normal Affect, Normal Mood - Skin Skin Exam: Dry, Intact, Normal Color, Warm Assessment and Plan - Assessment and Plan (Free Text) Assessment: 57M with SBO Plan: Abdominal flat plate XR Clamp NGT for 4 hours this AM then return to suction for 1 hour to check for resolution of SBO Continue NPO--may consider advancing to CLD if patient has low output from NGT and tolerates clamping trial Encourage ambulation PRN pain and nausea medication Supplement magnesium Discussed with Dr. Paola Hernandez, PGY2 <Mann Guevara - Last Filed: 12/01/17 19:25> Objective - Vital Signs/Intake and Output Vital Signs (last 24 hours): Temp Pulse Resp BP Pulse Ox 98 F 59 L 20 131/83 96 11/28/17 08:15 11/28/17 08:15 11/28/17 08:15 11/28/17 08:15 11/28/17 08:15 - Labs Labs: 11/28/17 07:20 11/28/17 07:20 PT 10.4 SECONDS (9.4-12.5) 11/25/17 04:37 INR 0.91 (0.93-1.08) L 11/25/17 04:37 APTT 28.9 Seconds (25.1-36.5) 11/25/17 04:37 Attending/Attestation - Attestation I have personally seen and examined this patient.: Yes I have fully participated in the care of the patient.: Yes I have reviewed all pertinent clinical information, including history, physical exam and plan: Yes Notes (Text): Pt was seen and examined at bedside Agree with above note and assessment Pt is improving clinically AXr in am OOB to walk DC NG tube Plan d.w pt in detail.
[2017-11-26] MEDS ORDERED: Mineral Oil Enema 135 ml RC ONE (09:14)
[2017-11-26] MEDS: Lactated Ringer's 1,000 ML IV SCH ×2 (09:52→09:54)
[2017-11-26] MEDS: Magnesium Oxide 400 mg Tab UD PO SCH ×2 (09:54→17:53)
[2017-11-26] MEDS: Enoxaparin 40 mg Syringe SC SCH (09:54)
--- NOTE | 2017-11-26 10:32 | RAD ---
HISTORY: small bowel obstruction COMPARISON: No prior. FINDINGS: BOWEL: Normal. No obstruction. No free air. BONES: Normal. OTHER FINDINGS: The nasogastric tube is seen just beyond the GE junction. No evidence of obstruction IMPRESSION: No active disease.
[2017-11-26 12:43] LABS: FOLATE 18.4 ng/mL
[2017-11-26] MEDS: Morphine 2 mg/ml ISec IVP PRN ×3 (13:54→21:50)
--- NOTE | 2017-11-26 15:22 | CP.PCM.PN ---
<Rayna Marlow - Last Filed: 11/26/17 17:10> Subjective - Date & Time of Evaluation Date of Evaluation: 11/26/17 Time of Evaluation: 14:00 - Subjective Subjective: PGY-[address] Eason's service Patient seen and examined at bedside. No acute distress. Patient states that he was vomiting overnight. Patient reports flatus but denies bowel movement. Per surgery NG tube was removed. Patient started on cleared liquid diet Objective - Vital Signs/Intake and Output Vital Signs (last 24 hours): Temp Pulse Resp BP Pulse Ox 97.5 F L 60 20 137/92 H 96 11/26/17 15:19 11/26/17 15:19 11/26/17 15:19 11/26/17 15:19 11/26/17 15:19 Intake and Output: 11/26/17 11/26/17 06:59 18:59 Intake Total 0 Output Total 1300 500 Balance -1300 -500 - Medications Medications: Current Medications Diphenhydramine HCl (Benadryl) 25 mg IVP Q4H PRN PRN Reason: Itching / Pruritus Last Admin: 11/26/17 13:59 Dose: 25 mg Enoxaparin Sodium (Lovenox) 40 mg SC DAILY [facility] PRN Reason: Protocol Last Admin: 11/26/17 09:54 Dose: 40 mg Lactated Ringer's (Lactated Ringer's) 1,000 mls @ 110 mls/hr IV .Q9H6M [facility] Last Admin: 11/26/17 09:54 Dose: 110 mls/hr Magnesium Oxide (Mag-Ox) 400 mg PO BID [facility] Last Admin: 11/26/17 09:54 Dose: 400 mg Morphine Sulfate (Morphine) 2 mg IVP Q4H PRN PRN Reason: Pain, severe (8-10) Last Admin: 11/26/17 13:54 Dose: 2 mg Ondansetron HCl (Zofran Inj) 4 mg IVP Q6H PRN PRN Reason: Nausea/Vomiting Last Admin: 11/26/17 09:56 Dose: 4 mg Pantoprazole Sodium (Protonix Inj) 40 mg IVP DAILY [facility] Last Admin: 11/26/17 09:56 Dose: 40 mg Sennosides (Senokot Tab) 8.6 mg PO BID [facility] Last Admin: 11/26/17 10:06 Dose: 8.6 mg - Labs Labs: 11/26/17 07:00 11/26/17 07:00 PT 10.4 SECONDS (9.4-12.5) 11/25/17 04:37 INR 0.91 (0.93-1.08) L 11/25/17 04:37 APTT 28.9 Seconds (25.1-36.5) 11/25/17 04:37 - Constitutional Appears: Well, No Acute Distress - Head Exam Head Exam: ATRAUMATIC, NORMOCEPHALIC - Eye Exam Eye Exam: EOMI, Normal appearance - ENT Exam ENT Exam: Mucous Membranes Moist - Respiratory Exam Respiratory Exam: Clear to Ausculation Bilateral, NORMAL BREATHING PATTERN. absent: Rhonchi, Wheezes, Respiratory Distress - Cardiovascular Exam Cardiovascular Exam: REGULAR RHYTHM, +S1, +S2. absent: Tachycardia, Murmur - GI/Abdominal Exam GI & Abdominal Exam: Soft, Tenderness, Diminished Bowel Sounds. absent: Distended, Firm, Guarding - Extremities Exam Extremities Exam: Normal Inspection. absent: Pedal Edema, Tenderness - Neurological Exam Neurological Exam: Alert, Awake, Oriented x3 - Skin Skin Exam: Dry, Intact, Normal Color, Warm Assessment and Plan - Assessment and Plan (Free Text) Assessment: 57 M with PMH including numerous abdominal surgeries, presents for abdominal pain likely secondary to SBO partial sbo hypomagnesium Plan: Patient has h/o multiple abd surgery NG tube was placed for decompression, d/c per surgery surgery following, conservative management replace electrolytes as needed diet CLD continue PPI case reviewed and discussed with Dr. Eason <Maribel Eason V - Last Filed: 02/10/18 13:45> Objective - Vital Signs/Intake and Output Vital Signs (last 24 hours): Temp Pulse Resp BP Pulse Ox 98 F 59 L 20 131/83 96 11/28/17 08:15 11/28/17 08:15 11/28/17 08:15 11/28/17 08:15 11/28/17 08:15 - Labs Labs: 11/28/17 07:20 11/28/17 07:20 PT 10.4 SECONDS (9.4-12.5) 11/25/17 04:37 INR 0.91 (0.93-1.08) L 11/25/17 04:37 APTT 28.9 Seconds (25.1-36.5) 11/25/17 04:37 Attending/Attestation - Attestation I have personally seen and examined this patient.: Yes I have fully participated in the care of the patient.: Yes I have reviewed all pertinent clinical information, including history, physical exam and plan: Yes Notes (Text): This is a delayed addendum to GI followup report dictated by the [employer].The patient was seen and examined earlier. Medical records, lab studies, imagings were reviewed. Last 24 hours events reviewed. Agreed with the above treatment plan as outlined in [facility] 's notes the with the addition of the following small bowel obstruction History of multiple surgery NG tube decompression Conservative management Surgical follow-up Discussed with the surgical team 02/10/18 13:44
[2017-11-27] MEDS: DiphenhydrAMINE 50 mg/ml Inj IVP PRN ×3 (02:24→10:10)
[2017-11-27] MEDS: Morphine 2 mg/ml ISec IVP PRN ×2 (02:24→06:20)
[2017-11-27] MEDS: Lactated Ringer's 1,000 ML IV SCH (06:39)
[2017-11-27 07:33] LABS: BASO # 0.01 K/mm3 (0.0-2.0); BASO % 0.2 % (0.0-3.0); EOS # 0.1 (0.0-0.7); EOS % 1.5 % (1.5-5.0); GRAN # 2.46 (1.4-6.5); GRAN % 51.8 % (50.0-68.0); HEMOGLOBIN 11.8 g/dL (14.0-18.0); LYMPH # 1.9 (1.2-3.4); LYMPH % 40.2 % (22.0-35.0); MEAN CELL VOLUME 77.1 fl (80.0-105.0); MEAN CORPUSCULAR HEMOGLOBIN 24.7 pg (25.0-35.0); MEAN CORPUSCULAR HGB CONC 32.1 g/dl (31.0-37.0); MEAN PLATELET VOLUME 10.1 fl (7.0-11.0); MONO # 0.3 (0.1-0.6); MONO % 6.3 % (1.0-6.0); RBC 4.77 10^6/uL (3.5-6.1); RED CELL DISTRIBUTION WIDTH 17.8 % (11.5-14.5); WHITE BLOOD COUNT 4.8 10^3/ul (4.5-11.0)
[2017-11-27 08:00] LABS: BLOOD UREA NITROGEN 10 mg/dL (7-21); CALCIUM 8.3 mg/dL (8.4-10.5); GFR NON-AFRICAN AMERICAN > 60
--- NOTE | 2017-11-27 08:49 | CP.PCM.PN ---
<AmberRuddygracielanicole - Last Filed: 11/27/17 08:50> Subjective - Date & Time of Evaluation Date of Evaluation: 11/27/17 Time of Evaluation: 07:30 - Subjective Subjective: Surgery progress note for Dr. Guevara Patient seen and examined at bedside. Per nursing staff no acute events overnight. Patient reports improvement in his abdominal pain. He also reports that he had one episode of nausea and bilious vomiting overnight, followed by a loose bowel movement. Admits to flatus. Objective - Vital Signs/Intake and Output Vital Signs (last 24 hours): Temp Pulse Resp BP Pulse Ox 97.6 F 60 20 107/69 97 11/27/17 08:12 11/27/17 08:12 11/27/17 08:12 11/27/17 08:12 11/27/17 08:12 Intake and Output: 11/27/17 11/27/17 06:59 18:59 Intake Total 1680 Output Total 350 Balance 1330 - Medications Medications: Current Medications Diphenhydramine HCl (Benadryl) 25 mg IVP Q4H PRN PRN Reason: Itching / Pruritus Last Admin: 11/27/17 06:20 Dose: 25 mg Enoxaparin Sodium (Lovenox) 40 mg SC DAILY [facility] PRN Reason: Protocol Last Admin: 11/26/17 09:54 Dose: 40 mg Lactated Ringer's (Lactated Ringer's) 1,000 mls @ 110 mls/hr IV .Q9H6M [facility] Last Admin: 11/27/17 06:39 Dose: 110 mls/hr Magnesium Oxide (Mag-Ox) 400 mg PO BID [facility] Last Admin: 11/26/17 17:53 Dose: 400 mg Morphine Sulfate (Morphine) 2 mg IVP Q4H PRN PRN Reason: Pain, severe (8-10) Last Admin: 11/27/17 06:20 Dose: 2 mg Ondansetron HCl (Zofran Inj) 4 mg IVP Q6H PRN PRN Reason: Nausea/Vomiting Last Admin: 11/27/17 02:23 Dose: 4 mg Pantoprazole Sodium (Protonix Inj) 40 mg IVP DAILY [facility] Last Admin: 11/26/17 09:56 Dose: 40 mg Sennosides (Senokot Tab) 8.6 mg PO BID [facility] Last Admin: 11/26/17 17:53 Dose: 8.6 mg - Labs Labs: 11/27/17 05:00 11/27/17 07:00 PT 10.4 SECONDS (9.4-12.5) 11/25/17 04:37 INR 0.91 (0.93-1.08) L 11/25/17 04:37 APTT 28.9 Seconds (25.1-36.5) 11/25/17 04:37 - Constitutional Appears: Non-toxic, No Acute Distress - Eye Exam Eye Exam: Normal appearance - ENT Exam ENT Exam: Mucous Membranes Moist - Respiratory Exam Respiratory Exam: NORMAL BREATHING PATTERN - Cardiovascular Exam Cardiovascular Exam: RRR - GI/Abdominal Exam GI & Abdominal Exam: Soft, Tenderness (minimal, improved). absent: Distended, Firm, Guarding, Rigid - Neurological Exam Neurological Exam: Alert, Awake - Psychiatric Exam Psychiatric exam: Normal Affect, Normal Mood - Skin Skin Exam: Dry, Intact, Normal Color Assessment and Plan - Assessment and Plan (Free Text) Assessment: 57 yo M with SBO Plan: Abdominal flat plate XR s/p NGT decompression yesterday showed air in colon and stool in rectum, resolution of dilated stomach and small bowel, appropriate placement of NGT NGT removed yestrday Continue CLD; advance diet as tolerated Encourage ambulation PRN pain and nausea medication Discussed with Dr. Paola Clark, PGY1 <Mann Guevara - Last Filed: 12/01/17 19:31> Objective - Vital Signs/Intake and Output Vital Signs (last 24 hours): Temp Pulse Resp BP Pulse Ox 98 F 59 L 20 131/83 96 11/28/17 08:15 11/28/17 08:15 11/28/17 08:15 11/28/17 08:15 11/28/17 08:15 - Labs Labs: 11/28/17 07:20 11/28/17 07:20 PT 10.4 SECONDS (9.4-12.5) 11/25/17 04:37 INR 0.91 (0.93-1.08) L 11/25/17 04:37 APTT 28.9 Seconds (25.1-36.5) 11/25/17 04:37 Attending/Attestation - Attestation I have fully participated in the care of the patient.: Yes I have reviewed all pertinent clinical information, including history, physical exam and plan: Yes Notes (Text): Pt is improved clinically Tolerating liquid diet Advance to [facility] diet Labs and radiology reviewed C/w pepe sam Plan d.w pt in detail
[2017-11-27] MEDS: Magnesium Oxide 400 mg Tab UD PO SCH ×2 (10:11→18:24)
[2017-11-27] MEDS: Enoxaparin 40 mg Syringe SC SCH (10:11)
--- NOTE | 2017-11-27 10:52 | CP.PCM.PN ---
<Rayna Marlow - Last Filed: 11/28/17 08:18> Subjective - Date & Time of Evaluation Date of Evaluation: 11/27/17 Time of Evaluation: 10:00 - Subjective Subjective: PGY-[address] Eason's service Patient seen and examined at bedside. No acute distress. Patient states he has small bowel movement. He continues to report gas. He states that he is no longer vomiting, last time was yesterday evening. Per surgery NG tube was removed yesterday. Patient started on cleared liquid diet, he does report abd pain with eating, about 7/10, intermittent. Objective - Vital Signs/Intake and Output Vital Signs (last 24 hours): Temp Pulse Resp BP Pulse Ox 97.6 F 60 20 107/69 97 11/27/17 08:12 11/27/17 08:12 11/27/17 08:12 11/27/17 08:12 11/27/17 08:12 Intake and Output: 11/27/17 11/27/17 06:59 18:59 Intake Total 1680 Output Total 350 Balance 1330 - Medications Medications: Current Medications Diphenhydramine HCl (Benadryl) 25 mg IVP Q4H PRN PRN Reason: Itching / Pruritus Last Admin: 11/27/17 10:10 Dose: 25 mg Enoxaparin Sodium (Lovenox) 40 mg SC DAILY [facility] PRN Reason: Protocol Last Admin: 11/27/17 10:11 Dose: 40 mg Lactated Ringer's (Lactated Ringer's) 1,000 mls @ 110 mls/hr IV .Q9H6M [facility] Last Admin: 11/27/17 06:39 Dose: 110 mls/hr Magnesium Oxide (Mag-Ox) 400 mg PO BID [facility] Last Admin: 11/27/17 10:11 Dose: 400 mg Morphine Sulfate (Morphine) 2 mg IVP Q4H PRN PRN Reason: Pain, severe (8-10) Last Admin: 11/27/17 06:20 Dose: 2 mg Ondansetron HCl (Zofran Inj) 4 mg IVP Q6H PRN PRN Reason: Nausea/Vomiting Last Admin: 11/27/17 02:23 Dose: 4 mg Pantoprazole Sodium (Protonix Inj) 40 mg IVP DAILY [facility] Last Admin: 11/27/17 10:12 Dose: 40 mg Sennosides (Senokot Tab) 8.6 mg PO BID [facility] Last Admin: 11/27/17 10:11 Dose: 8.6 mg - Labs Labs: 11/27/17 05:00 11/27/17 07:00 PT 10.4 SECONDS (9.4-12.5) 11/25/17 04:37 INR 0.91 (0.93-1.08) L 11/25/17 04:37 APTT 28.9 Seconds (25.1-36.5) 11/25/17 04:37 - Constitutional Appears: No Acute Distress - Head Exam Head Exam: ATRAUMATIC, NORMOCEPHALIC - Eye Exam Eye Exam: EOMI, Normal appearance - ENT Exam ENT Exam: Mucous Membranes Moist - Respiratory Exam Respiratory Exam: Clear to Ausculation Bilateral, NORMAL BREATHING PATTERN. absent: Decreased Breath Sounds, Rales, Rhonchi, Wheezes, Respiratory Distress - Cardiovascular Exam Cardiovascular Exam: REGULAR RHYTHM, +S1, +S2. absent: Tachycardia, Murmur - GI/Abdominal Exam GI & Abdominal Exam: Soft, Tenderness, Hypoactive Bowel Sounds. absent: Distended, Firm - Extremities Exam Extremities Exam: Normal Inspection. absent: Pedal Edema, Tenderness - Neurological Exam Neurological Exam: Alert, Awake, Oriented x3 - Skin Skin Exam: Dry, Intact, Normal Color, Warm Assessment and Plan - Assessment and Plan (Free Text) Assessment: 57 M with PMH including numerous abdominal surgeries, presents for abdominal pain likely secondary to SBO partial sbo hypomagnesium Plan: Patient has h/o multiple abd surgery NG tube was placed for decompression, d/c per surgery surgery following, conservative management replace electrolytes as needed diet CLD, advance per surgery continue PPI case reviewed and discussed with Dr. Eason <Maribel Eason V - Last Filed: 02/10/18 13:47> Objective - Vital Signs/Intake and Output Vital Signs (last 24 hours): Temp Pulse Resp BP Pulse Ox 98 F 59 L 20 131/83 96 11/28/17 08:15 11/28/17 08:15 11/28/17 08:15 11/28/17 08:15 11/28/17 08:15 - Labs Labs: 11/28/17 07:20 11/28/17 07:20 PT 10.4 SECONDS (9.4-12.5) 11/25/17 04:37 INR 0.91 (0.93-1.08) L 11/25/17 04:37 APTT 28.9 Seconds (25.1-36.5) 11/25/17 04:37 Attending/Attestation - Attestation I have personally seen and examined this patient.: Yes I have fully participated in the care of the patient.: Yes I have reviewed all pertinent clinical information, including history, physical exam and plan: Yes Notes (Text): This is a delayed addendum to GI followup report dictated by the Information Security Consultant.The patient was seen and examined earlier. Medical records, lab studies, imagings were reviewed. Last 24 hours events reviewed. Agreed with the above treatment plan as outlined in Information Security Consultant 's notes the with the addition of the following on clear liquid diet Feels better Conservative management Advance diet as per surgery 02/10/18 13:46
[2017-11-27] MEDS ORDERED: Magnesium Sulfate 1 gm in D5W 1 GM/100 ML BAG IVPB ONE (11:37)
[2017-11-27] MEDS ORDERED: Oxycodone/Acetaminophen 5/325 mg Tab PO PRN (17:42)
[2017-11-27] MEDS ORDERED: Morphine 2 mg/ml ISec IVP STA (17:42)
[2017-11-27] MEDS ORDERED: DiphenhydrAMINE 50 mg/ml Inj IVP ONE (17:44)
[2017-11-27 22:10] VITALS: PULSE 59; RESP 20
[2017-11-27] MEDS: Oxycodone/Acetaminophen 5/325 mg Tab PO PRN (22:48)
--- NOTE | 2017-11-28 04:38 | PN ---
DATE: 11/28/2017 SUBJECTIVE: The patient was seen and examined at the bedside. Patient is sitting on the chair. was sitting on the bedside also. Do not look like in acute distress. NG tube was removed. Clear liquid offered, but apparently, patient is still having pain, 7/10, intermittent, but wants to go home. Patient is seen by surgical team. Advance diet to full soft food, and I gave some pain medication. We will observe the patient overnight. He has had small bowel movement. PHYSICAL EXAMINATION VITAL SIGNS: Temperature 97.6, pulse is 60, respiratory rate 20, blood pressure 107/69, pulse oximetry 97%. HEENT: Head normocephalic and atraumatic. Eyes, PERRLA. Extraocular movements are intact. Conjunctivae are clear. Nose, patent. Mucous membranes moist. NECK: Supple. No carotid bruit. No JVD or thyromegaly. CHEST: Bilaterally symmetrical. HEART: S1 and S2 positive. LUNGS: Clear to auscultation. ABDOMEN: Soft. Bowel sounds present. No organomegaly. EXTREMITIES: No edema. No cyanosis. NEUROLOGIC: Patient is awake, alert. Moving all four extremities. No focal deficit. MEDICATIONS: Benadryl, Lovenox, lactated Ringer, milk of magnesia, morphine, Zofran, Protonix, Senokot. LABORATORY DATA: White blood cells 4.8, hemoglobin 11.8, hematocrit 36.8, platelets 100. Sodium 144, potassium 3.8, BUN 10, creatinine 1 and glucose 78. ASSESSMENT AND PLAN: Tommy Murray is a 57-year-old male with anemia, thrombocytopenia, hyperchloremia, history of multiple abdominal surgeries, status post trauma, seen by surgical team and GI team, came with small bowel obstruction. KUB done. Nasogastric tube given and that removed. Patient was given liquid diet, tolerated; still has abdominal pain, advanced by today. Pain medications given. Encourage ambulation. Gastrointestinal and deep venous thrombosis prophylaxis. History of gastric ulcers, history of blood transfusion. Left big toe amputation. Left wrist and left leg has surgical rods. Repeat labs. We will follow. Tricia Meier MD [facility] # [id number] RICARDO
[2017-11-28] MEDS ORDERED: Pantoprazole 40 mg EC Tab PO SCH (06:00)
[2017-11-28] MEDS: Oxycodone/Acetaminophen 5/325 mg Tab PO PRN (06:44)
[2017-11-28 07:47] LABS: BASO # 0.01 K/mm3 (0.0-2.0); BASO % 0.2 % (0.0-3.0); GRAN # 1.74 (1.4-6.5); GRAN % 42.7 % (50.0-68.0); HEMOGLOBIN 11.8 g/dL (14.0-18.0); LYMPH # 2.1 (1.2-3.4); LYMPH % 50.7 % (22.0-35.0); MEAN CELL VOLUME 76.9 fl (80.0-105.0); MEAN CORPUSCULAR HEMOGLOBIN 25.1 pg (25.0-35.0); MEAN CORPUSCULAR HGB CONC 32.6 g/dl (31.0-37.0); MEAN PLATELET VOLUME 10.5 fl (7.0-11.0); MONO # 0.2 (0.1-0.6); MONO % 5.4 % (1.0-6.0); RBC 4.71 10^6/uL (3.5-6.1); RED CELL DISTRIBUTION WIDTH 17.9 % (11.5-14.5); WHITE BLOOD COUNT 4.1 10^3/ul (4.5-11.0)
[2017-11-28 07:59] LABS: BLOOD UREA NITROGEN 12 mg/dL (7-21); CALCIUM 8.5 mg/dL (8.4-10.5); GFR NON-AFRICAN AMERICAN > 60
[2017-11-28 08:16] VITALS: BP 131/83; TEMP 98; O2SAT 96
--- NOTE | 2017-11-28 08:37 | PN ---
DATE: 11/26/2017 SUBJECTIVE: The patient was seen and examined on the bedside on 11/26/2017, looking comfortable. No nausea, vomiting, diarrhea. No hematuria, no hematochezia. He is only anxious. No headaches, no dizziness. Passing gas, and denies current nausea. PHYSICAL EXAMINATION: VITAL SIGNS: Temperature 97.8, pulse 71, respiratory rate 20, blood pressure 128/78, pulse oximetry 97%. HEENT: Head normocephalic, atraumatic. Eyes PERRLA. Extraocular muscles intact. Conjunctivae clear. Nose patent. Mucous membrane moist. NECK: Supple. No carotid bruit. No JVD or thyromegaly. CHEST: Bilaterally symmetrical. HEART: S1 and S2 positive. LUNGS: Clear to auscultation. ABDOMEN: Soft. Bowel sounds positive. No organomegaly. EXTREMITIES: No edema. No cyanosis. NEUROLOGICAL: The patient is awake and alert. Moving all 4 extremities. No focal deficits. MEDICATIONS: Benadryl, Lovenox, Ringer lactate, magnesium oxide, morphine, Zofran, Protonix. LABORATORY DATA: White blood cells 5.6, hemoglobin 12.3, hematocrit 38.2, platelets 110. Sodium 140, potassium 4.1, BUN 12, creatinine 0.9, glucose 82. ASSESSMENT AND PLAN: The patient is a 57-year-old male with anemia, thrombocytopenia, hyperchloremia, came with abdominal pain, nasogastric tube was given and suction was put. Resolution of small bowel obstruction. Food given advance as tolerated. Encourage ambulation. P.r.n. pain and nausea medications. Supplement electrolytes. No surgery as per Dr. Guevara. Seen by GI also. The patient has history of numerous abdominal surgeries. Conservative management. Gastrointestinal and deep venous thrombosis prophylaxis. Repeat labs. We will follow up. Tricia Meier MD
[2017-11-28] MEDS: Magnesium Oxide 400 mg Tab UD PO SCH (10:12)
--- NOTE | 2017-11-28 11:25 | CP.PCM.PN ---
Subjective - Date & Time of Evaluation Date of Evaluation: 11/28/17 Time of Evaluation: 10:00 - Subjective Subjective: PGY-[address] Eason's service Patient seen and examined at bedside. No acute distress. Patient states he is having watery bowel movements, which is his baseline. He states that he is no longer nauseous of vomiting. Patient's diet was advanced yesterday, he report abd pain with eating. Objective - Vital Signs/Intake and Output Vital Signs (last 24 hours): Temp Pulse Resp BP Pulse Ox 98 F 59 L 20 131/83 96 11/28/17 08:15 11/28/17 08:15 11/28/17 08:15 11/28/17 08:15 11/28/17 08:15 Intake and Output: 11/28/17 11/28/17 06:59 18:59 Intake Total 660 Output Total 0 Balance 660 - Medications Medications: Current Medications Acetaminophen (Tylenol 325mg Tab) 650 mg PO Q4H PRN PRN Reason: Pain, moderate (4-7) Diphenhydramine HCl (Benadryl) 25 mg IVP Q4H PRN PRN Reason: Itching / Pruritus Last Admin: 11/27/17 10:10 Dose: 25 mg Docusate Sodium (Colace) 100 mg PO BID [facility] Last Admin: 11/28/17 10:12 Dose: Not Given Magnesium Oxide (Mag-Ox) 400 mg PO BID [facility] Last Admin: 11/28/17 10:12 Dose: 400 mg Oxycodone/Acetaminophen (Percocet 5/325 Mg Tab) 2 tab PO Q8H PRN PRN Reason: Pain, severe (8-10) Stop: 11/30/17 18:18 Last Admin: 11/28/17 06:44 Dose: 2 tab Pantoprazole Sodium (Protonix Ec Tab) 40 mg PO 0600 [facility] Last Admin: 11/28/17 06:17 Dose: 40 mg - Labs Labs: 11/28/17 07:20 11/28/17 07:20 PT 10.4 SECONDS (9.4-12.5) 11/25/17 04:37 INR 0.91 (0.93-1.08) L 11/25/17 04:37 APTT 28.9 Seconds (25.1-36.5) 11/25/17 04:37 - Constitutional Appears: Well, No Acute Distress - Head Exam Head Exam: ATRAUMATIC, NORMOCEPHALIC - Eye Exam Eye Exam: EOMI - ENT Exam ENT Exam: Mucous Membranes Moist - Respiratory Exam Respiratory Exam: Clear to Ausculation Bilateral, NORMAL BREATHING PATTERN. absent: Decreased Breath Sounds, Rales, Rhonchi, Wheezes, Respiratory Distress, Stridor - Cardiovascular Exam Cardiovascular Exam: REGULAR RHYTHM, +S1, +S2. absent: Bradycardia, Tachycardia , Irregular Rhythm, Murmur - GI/Abdominal Exam GI & Abdominal Exam: Soft, Tenderness, Normal Bowel Sounds. absent: Distended, Firm, Guarding - Extremities Exam Extremities Exam: Normal Inspection. absent: Pedal Edema, Tenderness - Neurological Exam Neurological Exam: Alert, Awake, Oriented x3 - Skin Skin Exam: Dry, Intact, Normal Color, Warm Assessment and Plan - Assessment and Plan (Free Text) Assessment: 57 M with PMH including numerous abdominal surgeries, presents for abdominal pain likely secondary to SBO partial sbo hypomagnesium Plan: Patient has h/o multiple abd surgery surgery following, conservative management replace electrolytes as needed diet advance per surgery to heart healthy continue PPI continue pain management case reviewed and discussed with Dr. Eason
--- NOTE | 2017-11-28 12:30 | CP.PCM.PN ---
<Vernon Landis - Last Filed: 11/28/17 12:42> Subjective - Date & Time of Evaluation Date of Evaluation: 11/28/17 Time of Evaluation: 09:15 - Subjective Subjective: Surgery Progress note. Dr. Guevara Pt seen and examined at bedside. States that his abdominal pain is improved. No nausea, vomiting. No diarrhea. Has been passing gas. States that he would like to go home today. Tolerating diet. Objective - Vital Signs/Intake and Output Vital Signs (last 24 hours): Temp Pulse Resp BP Pulse Ox 98 F 59 L 20 131/83 96 11/28/17 08:15 11/28/17 08:15 11/28/17 08:15 11/28/17 08:15 11/28/17 08:15 Intake and Output: 11/28/17 11/28/17 06:59 18:59 Intake Total 660 Output Total 0 Balance 660 - Medications Medications: Current Medications Acetaminophen (Tylenol 325mg Tab) 650 mg PO Q4H PRN PRN Reason: Pain, moderate (4-7) Diphenhydramine HCl (Benadryl) 25 mg IVP Q4H PRN PRN Reason: Itching / Pruritus Last Admin: 11/27/17 10:10 Dose: 25 mg Docusate Sodium (Colace) 100 mg PO BID [facility] Last Admin: 11/28/17 10:12 Dose: Not Given Magnesium Oxide (Mag-Ox) 400 mg PO BID [facility] Last Admin: 11/28/17 10:12 Dose: 400 mg Oxycodone/Acetaminophen (Percocet 5/325 Mg Tab) 2 tab PO Q8H PRN PRN Reason: Pain, severe (8-10) Stop: 11/30/17 18:18 Last Admin: 11/28/17 06:44 Dose: 2 tab Pantoprazole Sodium (Protonix Ec Tab) 40 mg PO 0600 [facility] Last Admin: 11/28/17 06:17 Dose: 40 mg - Labs Labs: 11/28/17 07:20 11/28/17 07:20 PT 10.4 SECONDS (9.4-12.5) 11/25/17 04:37 INR 0.91 (0.93-1.08) L 11/25/17 04:37 APTT 28.9 Seconds (25.1-36.5) 11/25/17 04:37 - Constitutional Appears: Well, Non-toxic, No Acute Distress - Head Exam Head Exam: ATRAUMATIC, NORMAL INSPECTION, NORMOCEPHALIC - Eye Exam Eye Exam: EOMI, Normal appearance - ENT Exam ENT Exam: Mucous Membranes Moist - Neck Exam Neck Exam: Full ROM - Respiratory Exam Respiratory Exam: NORMAL BREATHING PATTERN. absent: Accessory Muscle Use, Respiratory Distress - GI/Abdominal Exam GI & Abdominal Exam: Soft. absent: Distended, Firm, Guarding, Tenderness, Rebound - Extremities Exam Extremities Exam: Normal Inspection. absent: Calf Tenderness - Neurological Exam Neurological Exam: Alert, Awake, Oriented x3 - Psychiatric Exam Psychiatric exam: Normal Affect, Normal Mood - Skin Skin Exam: Dry, Intact, Normal Color, Warm Assessment and Plan - Assessment and Plan (Free Text) Assessment: 57yo M w SBO, resolved. Plan: - No plans for any surgical intervention at this time - Patient to follow-up with Dr. Guevara in office. Call for appointment - Recommend Pureed diet for at least 2 weeks Further recs as per Dr. Paola Landis PGY1 surgery pager: [phone] <Mann Guevara B - Last Filed: 12/01/17 19:30> Objective - Vital Signs/Intake and Output Vital Signs (last 24 hours): Temp Pulse Resp BP Pulse Ox 98 F 59 L 20 131/83 96 11/28/17 08:15 11/28/17 08:15 11/28/17 08:15 11/28/17 08:15 11/28/17 08:15 - Labs Labs: 11/28/17 07:20 11/28/17 07:20 PT 10.4 SECONDS (9.4-12.5) 11/25/17 04:37 INR 0.91 (0.93-1.08) L 11/25/17 04:37 APTT 28.9 Seconds (25.1-36.5) 11/25/17 04:37 Attending/Attestation - Attestation I have fully participated in the care of the patient.: Yes I have reviewed all pertinent clinical information, including history, physical exam and plan: Yes Notes (Text): Pt is improved clinically Tolerating liquid diet Advance to purred diet as tolerated Labs and radiology reviewed No acute general surgical intervention required f.u as out pt
== END 2017-11-28 14:07 | disposition home or self-care (01) | DRG 390 ==
LOC: ED 03:58 → MERGE 08:18 → ERH 08:18 → 5RSO 09:11
PROVIDERS: ADMIT Internal Medicine; ATTEND Internal Medicine
DX: K56.50 Intestinal adhesions [bands], unspecified as to partial versus complete obstruction (principal); D64.9 Anemia, unspecified; D69.6 Thrombocytopenia, unspecified; E87.8 Other disorders of electrolyte and fluid balance, not elsewhere classified; E83.42 Hypomagnesemia; F41.9 Anxiety disorder, unspecified; I10 Essential (primary) hypertension; N28.9 Disorder of kidney and ureter, unspecified; Z86.718 Personal history of other venous thrombosis and embolism; Z87.11 Personal history of peptic ulcer disease; Z89.412 Acquired absence of left great toe

== ENCOUNTER 2018-04-16 10:20 | Emergency (ER) | payer MEDICARE, OTHER ==
[2018-04-16 10:41] VITALS: BMI 24.6
[2018-04-16 10:44] VITALS: RESP 18; O2SAT 99
--- NOTE | 2018-04-16 10:59 | ED PDOC ---
Arrival/HPI - General Historian: Patient - History of Present Illness Narrative History of Present Illness (Text): 04/16/18 10:46 57 y/o male, pmh including small bowel obstruction, allergic to cipro/hydralazine/lisinopril, c/o rt. hip pain x 3 days. Pt. stated that he has chronic rt. hip pain, recently moved from [place] to [place] about 6 months ago, no pmd or orthopedic follow up, stated that he has been walking up and down the stairs a lot for the past few days, no numbness or tingling, no night sweat, no rash, no dizziness, no change in vision, no other medical or psychological complaints. Pt. also stated that he has rt. upper molar pain for the past 1 week, unable to see the dentist, request to be evaluated as well. <Young Griffin - Last Filed: 04/16/18 12:48> <Terry Wheat - Last Filed: 04/16/18 16:16> - General Chief Complaint: Lower Extremity Problem/Injury Time Seen by Provider: 04/16/18 10:46 Past Medical History - Provider Review Nursing Documentation Reviewed: Yes - Infectious Disease Hx of Infectious Diseases: None - Cardiac Hx Cardiac Disorders: No Hx Hypotension: Yes (no meds) - Pulmonary Hx Respiratory Disorders: No - Neurological Hx Neurological Disorder: No - HEENT Hx HEENT Disorder: No - Renal Hx Renal Disorder: No - Endocrine/Metabolic Hx Endocrine Disorders: No - Hematological/Oncological Hx Blood Transfusions: Yes (2018) - Integumentary Hx Dermatological Disorder: No - Musculoskeletal/Rheumatological Hx Musculoskeletal Disorders: Yes Hx Falls: No - Gastrointestinal Other/Comment: 2000 traumatic impalement - Genitourinary/Gynecological Hx Genitourinary Disorders: No - Psychiatric Hx Psychophysiologic Disorder: No Hx Substance Use: No - Surgical History Hx Amputation: Yes (left big toe) Hx Musculoskeletal Surgery: Yes (left wrist/left leg) Other/Comment: 2000 traumatic impalement - Anesthesia Hx Anesthesia: Yes Hx Anesthesia Reactions: No Hx Malignant Hyperthermia: No <Young Griffin - Last Filed: 04/16/18 12:48> Family/Social History - Physician Review Nursing Documentation Reviewed: Yes Family/Social History: Unknown Family HX Smoking Status: Never Smoked Hx Alcohol Use: No Hx Substance Use: No <Young Griffin - Last Filed: 04/16/18 12:48> Allergies/Home Meds <GabyYoung Dong - Last Filed: 04/16/18 12:48> <Terry Wheat - Last Filed: 04/16/18 16:16> Allergies/Adverse Reactions: Allergies ciprofloxacin [From Cipro] Allergy (Verified 11/25/17 04:11) RASH hydralazine Allergy (Verified 11/25/17 04:13) RASH lisinopril Allergy (Verified 11/25/17 04:11) RASH Review of Systems - Review of Systems Constitutional: absent: Fatigue, Fevers Eyes: absent: Vision Changes ENT: Other (dental pain). absent: Hearing Changes Respiratory: absent: SOB, Cough Cardiovascular: absent: Chest Pain Gastrointestinal: absent: Abdominal Pain, Nausea, Vomiting Musculoskeletal: Arthralgias. absent: Back Pain Skin: absent: Rash, Pruritis, Skin Lesions Neurological: absent: Headache, Dizziness Psychiatric: absent: Anxiety, Depression, Suicidal Ideation <GriffinYoung Dong - Last Filed: 04/16/18 12:48> Physical Exam Vital Signs Reviewed: Yes Vital Signs Temp Pulse Resp BP Pulse Ox 04/16/18 10:40 97.6 F 75 18 138/100 H 99 Temperature: Afebrile Blood Pressure: Hypertensive Pulse: Regular Respiratory Rate: Normal Appearance: Positive for: Well-Appearing, Non-Toxic Pain Distress: Severe Mental Status: Positive for: Alert and Oriented X 3 - Systems Exam Head: Present: Atraumatic, Normocephalic Pupils: Present: PERRL Extroacular Muscles: Present: EOMI Conjunctiva: Present: Normal Mouth: Present: Moist Mucous Membranes, Other (Rt. upper dental caries with no gingival abscess) Nose (External): Present: Atraumatic. No: Abrasion, Contusion, Laceration Nose (Internal): Present: Normal Inspection, No Active Bleeding. No: Rhinorrhea, Septal Hematoma, Epistaxis Neck: Present: Normal Range of Motion Respiratory/Chest: Present: Clear to Auscultation, Good Air Exchange. No: Respiratory Distress, Accessory Muscle Use, Wheezes, Decreased Breath Sounds, Rales, Retracting, Rhonchi Cardiovascular: Present: Regular Rate and Rhythm, Normal S1, S2. No: Murmurs Abdomen: No: Tenderness, Distention, Peritoneal Signs, Rebound, Guarding Back: Present: Normal Inspection Upper Extremity: Present: Normal Inspection. No: Cyanosis, Edema Lower Extremity: Present: Normal Inspection, Other (RLE: +ttp on the lateral bur sa region, pain with active lateral movement of the hip, no erythematous/cellulitis/ulcer/rash, FROM without limitation, sensation intact, motor 5/5, +DPPT pulses, capillary refill< 2 seconds, neurovascular intact. ). No: Edema Neurological: Present: GCS=15, CN II-XII Intact, Speech Normal Skin: Present: Warm, Dry, Normal Color. No: Rashes Psychiatric: Present: Alert, Oriented x 3, Normal Insight, Normal Concentration <Young Griffin - Last Filed: 04/16/18 12:48> Vital Signs Temp Pulse Resp BP Pulse Ox 04/16/18 12:00 97.9 F 82 18 99 04/16/18 11:53 72 18 142/80 99 04/16/18 10:40 97.6 F 75 18 138/100 H 99 <Terry Wheat - Last Filed: 04/16/18 16:16> Medical Decision Making ED Course and Treatment: 04/16/18 11:04 -Rt. hip xray -Toradol IM/lidoderm -Observe and reassess 04/16/18 11:54 -Rt. hip xray show No acute fracture or dislocation. No significant degenerative osteoarthrosis. -Pt. request narcotic prescription, I checked the [facility] report that he has multi ple prescriptions and I explained to him that I can not do prescription refill for narcotic prescription. I explained all the labs/radiology result with the patient and [facility] policy as well. Pt. is not happy and request to be discharge with antibiotic for his dental caries and dental pain. -Discharge home with cane, naproxen, lidoderm patch, amoxicillin, bed rest, ice compression, follow up with your own pmd and orthopedic/dentist within 2 days, return to the ER for any new or worsening signs or symptoms. - RAD Interpretation Radiology Orders: PROCEDURE: Right Hip Radiographs. HISTORY: rt. hip pain, chronic COMPARISON: None. FINDINGS: BONES: The pelvic ring is intact. There is no acute displaced fracture or bone destruction. Bone alignment is normal. There is diffuse bone demineralization. JOINTS: Normal. SOFT TISSUES: Normal. OTHER FINDINGS: None. IMPRESSION: No acute fracture or dislocation. No significant degenerative osteoarthrosis. Denture Finisher: Radiologist <Young Griffin - Last Filed: 04/16/18 12:48> - RAD Interpretation Radiology Orders: 04/16/18 10:59 HIP MIN 2V W/ PELVIS RT [RAD] Stat - Medication Orders Current Medication Orders: Discontinued Medications Ketorolac Tromethamine (Toradol) 60 mg IM STAT STA Stop: 04/16/18 11:00 Last Admin: 04/16/18 11:50 Dose: 60 mg MAR Pain Assessment Document 04/16/18 11:50 HI (Rec: 04/16/18 11:51 HI [id number]) Pain Reassessment Is this a pain reassessment? No Sleep Is patient sleeping during reassessment? No Pain Scale Used Protocol: PSCALES Pain Scale Used Numeric Location Left, Right or Bilateral Right Pain Location Body Site Hip Description Description Constant Intensity of Pain at present 7 Acceptable Level of Pain 0 IM Administration Charges Document 04/16/18 11:50 HI (Rec: 04/16/18 11:51 HI [id number]) Injection Site MAR Injection Site Right Gluteus Jim Charges for Administration # of IM Administrations 1 Lidocaine (Lidoderm) 1 ea TD STAT STA Stop: 04/16/18 11:01 Last Admin: 04/16/18 11:51 Dose: 1 ea MAR Transdermal Patch Site Document 04/16/18 11:51 HI (Rec: 04/16/18 11:51 [id number] Transdermal Patch Site Transdermal Patch Site Right Hip <Terry Wheat - Last Filed: 04/16/18 16:16> - PA / PRODUCT MANAGER MEDICAL DEVICE / Resident Statement JERICHO has reviewed & agrees with the documentation as recorded. <Young Griffin - Last Filed: 04/16/18 12:48> - PA / PRODUCT MANAGER MEDICAL DEVICE / Resident Statement JERICHO has reviewed & agrees with the documentation as recorded. <Terry Wheat - Last Filed: 04/16/18 16:16> Disposition/Present on Arrival - Present on Arrival Any Indicators Present on Arrival: No History of DVT/PE: No History of Uncontrolled Diabetes: No Urinary Catheter: No History of Decub. Ulcer: No History Surgical Site Infection Following: None - Disposition Have Diagnosis and Disposition been Completed?: Yes Disposition Time: 11:56 Patient Plan: Discharge <Young Griffin - Last Filed: 04/16/18 12:48> <Terry Wheat - Last Filed: 04/16/18 16:16> - Disposition Diagnosis: Dental caries, Pain, dental, Bursitis, Hip pain Disposition: HOME/ ROUTINE Condition: GOOD Additional Instructions: -Discharge home with cane, naproxen, lidoderm patch, amoxicillin, bed rest, ice compression, follow up with your own pmd and orthopedic/dentist within 2 days, return to the ER for any new or worsening signs or symptoms. Prescriptions: RX: Amoxicillin [Amoxil 500 mg Cap] 500 mg PO TID #30 cap Lidocaine 5% [Lidoderm] 1 patch TOP DAILY PRN #14 patch PRN Reason: Other RX: Naproxen 500 mg PO BID PRN #20 tab PRN Reason: Other Referrals: Declan Valladares MD [Staff Provider] - Follow up with primary [facility] at [facility] [place] [Outside] - Follow up with primary Forms: [employer] (Indian), WORK NOTE
[2018-04-16] MEDS ORDERED: Lidocaine 5% Patch TD STA (11:00)
--- NOTE | 2018-04-16 11:44 | RAD ---
PROCEDURE: Right Hip Radiographs. HISTORY: rt. hip pain, chronic COMPARISON: None. FINDINGS: BONES: The pelvic ring is intact. There is no acute displaced fracture or bone destruction. Bone alignment is normal. There is diffuse bone demineralization. JOINTS: Normal. SOFT TISSUES: Normal. OTHER FINDINGS: None. IMPRESSION: No acute fracture or dislocation. No significant degenerative osteoarthrosis.
[2018-04-16 11:53] VITALS: BP 142/80
[2018-04-16 12:49] VITALS: PULSE 82; TEMP 97.9
== END 2018-04-16 12:00 | disposition home or self-care (01) ==
LOC: ED 10:20
DX: M71.551 Other bursitis, not elsewhere classified, right hip (principal); M25.551 Pain in right hip; K02.9 Dental caries, unspecified
CPT/HCPCS: 73502; 96372; 99282; J1885